=== PATIENT | female | born 1995 | race American Indian/Alaskan Native ===

== ENCOUNTER 2017-03-05 16:08 | Outpatient (CLI) | payer OTHER ==
[2017-03-05 17:09] VITALS: BP 135/86
== END 2017-03-05 17:40 | disposition home or self-care (01) ==
LOC: TRG 16:08 → LD 16:10 → TRG 17:40
PROVIDERS: ATTEND Obstetrics & Gynecology
DX: O47.03 False labor before 37 completed weeks of gestation, third trimester (principal); Z3A.31 31 weeks gestation of pregnancy

== ENCOUNTER 2017-03-27 13:50 | Outpatient (CLI) | payer OTHER ==
--- NOTE | 2017-03-28 09:16 | Ultrasound Report ---
BILATERAL DIGITAL DIAGNOSTIC MAMMOGRAM with CAD and BILATERAL BREAST ULTRASOUND: 03/27/17 CLINICAL: Left breast pain and discharge which varies from milky to bloody. Status post benign left ultrasound guided needle biopsy on 03/15/16 with pathologic diagnosis of proliferative fibrocystic changes with duct ectasia, blunt duct adenosis and sclerosis. COMPARISON:03/15/16 [facility] left mammogram. Imaging prior to that was at [facility] and those images are not available. FINDINGS: The breasts are heterogeneously dense, which may obscures small masses. An irregular partially circumscribed right central breast mass persists with spot compression. Two circumscribed masses in the left upper outer breast. The smaller mass has a biopsy clip and correlates with the most recent biopsy. The larger mass was not as dense or as large on the last mammogram. No architectural distortion or suspicious calcifications. Ultrasound of the right breast demonstrated an oval heterogeneous solid slightly irregular mass at 6 o'clock 5 cm from the nipple. It measures 1.2 x 1.1 x 0.9 cm and correlates with the mammographic mass. Ultrasound of the left breast (including all four quadrants and the retroareolar area) was performed. A solid heterogeneous hypoechoic mass at 1 o'clock 5 cm from the nipple contains a biopsy clip and correlates with the lesion that was biopsied on 03/15/16. It now measures 1.1 x 0.9 x 0.7 cm compared to 1.4 x 1.3 x 1.5 cm on the last exam. An oval solid heterogeneous hypoechoic mass at 1 o'clock 7 cm from the nipple measures 1.4 x 0.7 x 1.4 cm and it correlates with the mammographic mass which is more prominent than on the prior exam. No other mass of the left breast. Ultrasound of the left axilla demonstrated a single lymph node with central fat and benign morphology measuring 1.0 x 0.7 x 0.6 cm. IMPRESSION: 1. A solid 1.2 cm right breast mass at 6 o'clock 5 cm from the nipple. This mass is suspicious unless prior imaging can confirm stability in size over time. 2. A solid 1.4 cm left breast mass at 1 o'clock 7 cm from the nipple is suspicious because it appears larger and more prominent than on the prior mammogram. A second solid 1.1 cm mass in the left breast has been proven to be benign by needle biopsy and is smaller. 3. Recommend ultrasound guided needle biopsy of the right breast mass and ultrasound guided biopsy of the left breast mass at 1 o'clock which has not been biopsied. We will also attempt to obtain prior imaging from [facility] to better assess suspicion of these bilateral masses. BI-RADS CATEGORY: 4 -- Suspicious ACR BI-RADS MAMMOGRAPHIC CODES: 0 = Needs additional imaging evaluation; 1 = Negative; 2 = Benign; 3 = Probably benign; 4 = Suspicious; 5 = Malignant; 6 = Known biopsy-proven malignancy COMMENT: 1. Dense breast tissue, i.e., adenosis, fibrocystic changes, etc., may obscure an underlying neoplasm. 2. Approximately 10% of cancers are not detected with mammography. 3. A negative mammography report should not delay biopsy if a clinically suspicious mass is present. COMMENT: Patient follow-up letters are generated by our Alerts application.
== END 2017-03-27 13:51 | disposition home or self-care (01) ==
LOC: SPVWC 13:50
PROVIDERS: ATTEND Surgery
DX: N60.41 Mammary duct ectasia of right breast (principal); N60.42 Mammary duct ectasia of left breast; N63 Unspecified lump in breast; N64.52 Nipple discharge; N64.4 Mastodynia
CPT/HCPCS: 76642; A4648; G0204; 77066

== ENCOUNTER 2017-04-05 00:04 | Emergency (ER) | payer OTHER ==
[2017-04-05 01:47] LABS: Basophils % (Auto) 1.9 % (0.0-1.8); Eosinophils % (Auto) 1.1 % (0.0-4.3); Hematocrit 39.4 % (30.3-42.9); Hemoglobin 12.6 gm/dl (10.1-14.3); Mean Corpuscular HGB Conc 32 % (30-34); Mean Corpuscular Volume 77 fl (79-97); Platelet Count 248 K/mm3 (140-440); Red Blood Count 5.11 M/mm3 (3.65-5.03); Red Cell Distribution Width 15.7 % (13.2-15.2); White Blood Count 9.3 K/mm3 (4.5-11.0)
[2017-04-05 01:57] LABS: Mean Corpuscular Hemoglobin 25 pg (28-32)
[2017-04-05 01:58] LABS: Anion Gap 13 mmol/L; Blood Urea Nitrogen 12 mg/dL (7-17); Carbon Dioxide 27 mmol/L (22-30); Chloride 102.3 mmol/L (98-107); Glucose 102 mg/dL (65-100); Potassium 3.5 mmol/L (3.6-5.0); Sodium 139 mmol/L (137-145)
--- NOTE | 2017-04-05 03:46 | XRay Report ---
FINAL REPORT PROCEDURE: XR CHEST ROUTINE 2V TECHNIQUE: PA and lateral chest radiographs were obtained. CPT 23242 HISTORY: SOB/CP COMPARISON: No prior studies are available for comparison. FINDINGS: Heart: Normal. Mediastinum/Vessels: Normal. Lungs/Pleural space: Normal. Bony thorax: No acute osseous abnormality. Other: IMPRESSION: Normal examination.
[2017-04-05 04:55] VITALS: BP 122/91
== END 2017-04-05 01:20 | disposition left against medical advice (07) ==
LOC: ED 00:04
DX: R07.89 Other chest pain (principal); I10 Essential (primary) hypertension; Z88.8 Allergy status to other drugs, medicaments and biological substances; Z53.21 Procedure and treatment not carried out due to patient leaving prior to being seen by health care provider
CPT/HCPCS: 36415; 71020; 80048; 84484; 84703; 85025; 85379; 93005; 93010

== ENCOUNTER 2017-04-30 08:16 | Outpatient (CLI) | payer OTHER ==
--- NOTE | 2017-04-30 10:33 | Ultrasound Report ---
ULTRASOUND GUIDED NEEDLE CORE BIOPSY LEFT BREAST WITH CLIP PLACEMENT: 04/30/17 CLINICAL: Left breast mass at 1 o'clock 7 cm from the nipple. COMPARISON :03/27/17 FINDINGS: The procedure was explained to the patient and informed consent was obtained. Ultrasound demonstrated the previously described mass at 1 o'clock.. I marked the breast with a felt tip marker and a time out was called. The skin was prepped with Betadine and anesthetized with 1% lidocaine. Needle core biopsy was performed through a tiny dermatotomy using ultrasound guidance, 2% lidocaine with epinephrine for deep anesthesia and a 14-gauge Achieve biopsy device. 3 cores were obtained and placed in formalin. A clip was deployed within the mass. The patient tolerated the procedure well and there were no apparent complications. Hemostasis was achieved with minimal pressure and a sterile dressing was applied. She left the department in good condition and was given instructions for wound care and followup. IMPRESSION: Uncomplicated ultrasound guided needle core biopsy with clip placement left breast.
--- NOTE | 2017-04-30 10:47 | Ultrasound Report ---
ULTRASOUND GUIDED NEEDLE CORE BIOPSY RIGHT BREAST WITH CLIP PLACEMENT: 04/30/17 CLINICAL: Right breast mass at 6 o'clock 5 cm from the nipple. COMPARISON :03/27/17 FINDINGS: The procedure was explained to the patient and informed consent was obtained. Ultrasound demonstrated the previously described mass at 6 o'clock.. I marked the breast with a felt tip marker and a time out was called. The skin was prepped with Betadine and anesthetized with 1% lidocaine. Needle core biopsy was performed through a tiny dermatotomy using ultrasound guidance, 2% lidocaine with epinephrine for deep anesthesia and a 14-gauge Achieve biopsy device. Three cores were obtained and placed in formalin. A clip was deployed within the mass. The patient tolerated the procedure well and there were no apparent complications. Hemostasis was achieved with minimal pressure and a sterile dressing was applied. She left the department in good condition and was given instructions for wound care and followup. IMPRESSION: Uncomplicated ultrasound guided needle core biopsy with clip placement right breast.
== END 2017-04-30 08:17 | disposition home or self-care (01) ==
LOC: SPVWC 08:16
PROVIDERS: ATTEND Surgery
DX: N60.91 Unspecified benign mammary dysplasia of right breast (principal); N60.92 Unspecified benign mammary dysplasia of left breast; Z88.5 Allergy status to narcotic agent
CPT/HCPCS: 19083; 19084; 88305; A4648

== ENCOUNTER 2019-03-15 23:27 | Emergency (ER) | payer OTHER ==
[2019-03-16 00:08] LABS: Bilirubin,Urine NEG (Negative); Blood,Urine LG (Negative); Color,Urine Yellow (Yellow); Urobilinogen,Urine < 2.0 mg/dL (<2.0)
[2019-03-16 00:16] LABS: RBC,Urine > 182.0 /HPF (0.0-6.0)
[2019-03-16 00:17] LABS: Basophils % (Auto) 0.3 % (0.0-1.8); Eosinophils # (Auto) 0.1 K/mm3 (0.0-0.4); Eosinophils % (Auto) 1.7 % (0.0-4.3); Hematocrit 32.9 % (30.3-42.9); Hemoglobin 10.7 gm/dl (10.1-14.3); Lymphocytes # (Auto) 3.1 K/mm3 (1.2-5.4); Lymphocytes % (Auto) 37.8 % (13.4-35.0); Mean Corpuscular HGB Conc 33 % (30-34); Mean Corpuscular Volume 74 fl (79-97); Monocytes # (Auto) 0.6 K/mm3 (0.0-0.8); Platelet Count 294 K/mm3 (140-440); Red Blood Count 4.43 M/mm3 (3.65-5.03); Red Cell Distribution Width 17.5 % (13.2-15.2)
[2019-03-16 00:39] LABS: Alanine Aminotransferase 12 units/L (7-56); Albumin 3.9 g/dL (3.9-5); BUN/Creatinine Ratio 20; Blood Urea Nitrogen 18 mg/dL (7-17); Calcium 8.8 mg/dL (8.4-10.2); Hemolysis Index 5
--- NOTE | 2019-03-16 05:04 | Emergency Department Report ---
<RODRIGO FLOREZ - Last Filed: 03/16/19 05:05> ED Female HPI - General Chief complaint: Vaginal Bleeding Stated complaint: HEAVY BLEEDING/CLOTS/ABD PAIN Time Seen by Provider: 03/16/19 02:41 Source: patient Mode of arrival: Ambulatory Limitations: No Limitations - History of Present Illness Initial comments: 23-year-old presents [place] female to emergency Department complaining of heavy vaginal bleeding with excess plus for the past couple days. Sprain bleeding associated with some cramping, but reports no dysuria or vaginal discharge. Pain does radiate to the flank. Reports no fever, chills, sweats, chest pain, palpitations, nausea, vomiting. There is no tinnitus. There is no presyncope. She reports no trauma. She reports no no vaginal rash or irritation. And no dyspareunia. No constipation or diarrhea. States she is not on any any control but does have a strong family history is for uterin e fibroids. She denies any past medical history of any bleeding disorders and is not taking any blood thinners. This was spontaneous reports she has not had an episode like this in the amount of blood and cramping so brought to the emergency department this evening. There is no palliative or provocative factors reported. MD Complaint: vaginal bleeding Location: suprapubic Radiation: non-radiating Severity: mild Quality: dull Consistency: constant Improves with: none Are you Now?: No Associated Symptoms: vaginal bleeding. denies: vaginal discharge, abdominal pain, nausea/vomiting, dysuria, hematuria - Related Data Previous Rx's Medication Instructions Recorded Last Taken Type Ibuprofen [Motrin 600 MG tab] 600 mg PO Q8H PRN #30 tablet 01/15/16 Unknown Rx Multivitamin with Iron 1 each PO DAILY #30 tablet 01/15/16 Unknown Rx [Multivitamins with Iron] Ketorolac [Toradol] 10 mg PO Q6H PRN #20 tablet 03/16/19 Unknown Rx Nitrofurantoin [place]/M-Cryst 100 mg PO BID 7 Days #14 capsule 03/16/19 Unknown Rx [Macrobid CAP] Allergies Allergy/AdvReac Type Severity Reaction Status Date / Time tramadol Allergy Severe Itching Verified 03/05/17 16:50 ED Review of Systems Comment: All other systems reviewed and negative ED Past Medical Hx - Past Medical History Hx Hypertension: Yes (NO MEDS) Hx Diabetes: Yes (PREGNANCYonly) Hx Deep Vein Thrombosis: No Hx Renal Disease: No Hx Sickle Cell Disease: No Hx Seizures: No Hx Asthma: No Hx HIV: No - Surgical History Past Surgical History?: Yes Hx Cholecystectomy: Yes - Social History Smoking Status: Never Smoker Substance Use Type: None - Medications Home Medications: Home Medications Medication Instructions Recorded Confirmed Last Taken Type Ibuprofen [Motrin 600 MG tab] 600 mg PO Q8H PRN #30 tablet 01/15/16 Unknown Rx Multivitamin with Iron 1 each PO DAILY #30 tablet 01/15/16 Unknown Rx [Multivitamins with Iron] Ketorolac [Toradol] 10 mg PO Q6H PRN #20 tablet 03/16/19 Unknown Rx Nitrofurantoin [place]/M-Cryst 100 mg PO BID 7 Days #14 capsule 03/16/19 Unknown Rx [Macrobid CAP] ED Physical Exam - General Limitations: No Limitations General appearance: alert, in no apparent distress - Head Head exam: Present: atraumatic, normocephalic - Eye Eye exam: Present: normal appearance - ENT ENT exam: Present: mucous membranes moist - Neck Neck exam: Present: normal inspection - Respiratory Respiratory exam: Present: normal lung sounds bilaterally. Absent: respiratory distress - Cardiovascular Cardiovascular Exam: Present: regular rate, normal rhythm. Absent: systolic murmur, diastolic murmur, rubs, gallop - GI/Abdominal GI/Abdominal exam: Present: soft, normal bowel sounds - External exam: Present: normal external exam Speculum exam: Present: vaginal bleeding. Absent: foreign body, tissue, laceration Bi-manual exam: Present: uterine tenderness, other (no account support specialist was present during examination). Absent: cervical motion tendernes - Extremities Exam Extremities exam: Present: normal inspection, full ROM - Back Exam Back exam: Present: normal inspection - Neurological Exam Neurological exam: Present: alert, oriented X3 - Psychiatric Psychiatric exam: Present: normal affect, normal mood - Skin Skin exam: Present: warm, dry, intact, normal color. Absent: rash ED Medical Decision Making - Lab Data Result diagrams: 03/15/19 23:48 03/15/19 23:48 ED Disposition Clinical Impression: UTI (urinary tract infection) Qualifiers: Urinary tract infection type: acute cystitis Hematuria presence: without hematuria Qualified Code(s): N30.00 - Acute cystitis without hematuria Disposition: DC-01 TO HOME OR SELFCARE Instructions: Menstruation (ED), Menorrhagia (ED) Prescriptions: Nitrofurantoin [place]/M-Cryst [Macrobid CAP] 100 mg PO BID 7 Days #14 capsule Ketorolac [Toradol] 10 mg PO Q6H PRN #20 tablet PRN Reason: Pain Referrals: SELMA OLEA MD [Staff Physician] - 3-5 Days Forms: Work/School Release Form(ED) <IRVIN PERES - Last Filed: 03/16/19 05:36> ED Review of Systems ROS: Stated complaint: HEAVY BLEEDING/CLOTS/ABD PAIN Other details as noted in HPI ED Course Vital Signs 03/15/19 23:32 Temperature 98.5 F Pulse Rate 97 H Respiratory 18 Rate Blood Pressure 149/100 O2 Sat by Pulse 100 Oximetry ED Medical Decision Making - Lab Data Result diagrams: 03/15/19 23:48 03/15/19 23:48 Critical care attestation.: If time is entered above; I have spent that time in minutes in the direct care of this critically ill patient, excluding procedure time. ED Disposition Is pt being admited?: No Does the pt Need Aspirin: No Time of Disposition: 05:36
--- NOTE | 2019-03-16 05:13 | Ultrasound Report ---
PROCEDURE: US TRANSVAGINAL TECHNIQUE: Real-time transabdominal sonography in multiple planes of the pelvis was performed. The p elvic structures, especially the ovaries, were not optimally visualized. Transvaginal sonography was then performed to better evaluate the structures and/or abnormalities described below with image docu mentation. HISTORY: pelvic pain and vaginal bleeding COMPARISONS: None . FINDINGS: UTERUS Size: 10.8 x 5.1 x 6 cm. Endometrial thickness: 13 mm. Orientation: anteverted. Cervix: Normal. Fibroids/masses: None. RIGHT Ovary: 2.8 x 2.9 cm. Appearance: Normal. LEFT Ovary: Not visualized Pelvic fluid: None. Other: None. IMPRESSION: The uterus and right ovary: Normal appearance. The left ovary is not visualized. This document is electronically signed by Kelli De La Rosa DO., March 16 2019 05:12:06 AM ET
--- NOTE | 2019-03-16 05:14 | Ultrasound Report ---
PROCEDURE: US PELVIC COMPLETE TECHNIQUE: Real-time transabdominal and transvaginal sonography in multiple planes of the pelvis was performed. The pelvic structures, especially the ovaries, were not optimally visualized. Transvagina l sonography was then performed to better evaluate the structures and/or abnormalities described belo w with image documentation. HISTORY: pelvic pain and vaginal bleeding COMPARISONS: None . FINDINGS: UTERUS Size: 10.8 x 5.1 x 6 cm. Endometrial thickness: 13 mm. Orientation: anteverted. Cervix: Normal. Fibroids/masses: None. RIGHT Ovary: 2.8 x 2.9 cm. Appearance: Normal. LEFT Ovary: Not visualized Pelvic fluid: None. Other: None. IMPRESSION: The uterus and right ovary: Normal appearance. The left ovary is not visualized. This document is electronically signed by Kelli De La Rosa DO., March 16 2019 05:12:34 AM ET
[2019-03-16] MEDS ORDERED: XYLOCAINE 1% MPF 5 mL INFILTRATI ONE (05:34)
[2019-03-16] MEDS ORDERED: TORADOL IV ONE (05:34)
[2019-03-16] MEDS ORDERED: ROCEPHIN IM ONE (05:34)
[2019-03-16] MEDS ORDERED: ZOFRAN IV ONE (05:34)
[2019-03-16] MEDS ORDERED: ZOFRAN ODT PO ONE (05:43)
[2019-03-16] MEDS ORDERED: TORADOL IM ONE (05:43)
[2019-03-16] MEDS ORDERED: TYLENOL #3 PO ONE (06:04)
[2019-03-16 07:06] VITALS: BP 139/91
== END 2019-03-16 07:06 | disposition home or self-care (01) ==
LOC: ED 23:27
DX: N39.0 Urinary tract infection, site not specified (principal); I10 Essential (primary) hypertension; Z90.49 Acquired absence of other specified parts of digestive tract; Z88.6 Allergy status to analgesic agent
CPT/HCPCS: 36415; 76830; 76856; 80053; 81001; 84703; 85025; 96372; 99284; J0696; J1885; Q0162

== ENCOUNTER 2022-04-11 19:27 | Inpatient (IN) | payer OTHER ==
[2022-04-11] MEDS ORDERED: BUTORPHANOL 2 MG/1 ML INJ IV PRN (21:40)
[2022-04-11] MEDS ORDERED: ACETAMINOPHEN 325 MG TAB PO PRN (21:40)
[2022-04-11] MEDS ORDERED: LACTATED RINGERS 1,000 ML IV SCH (21:45)
[2022-04-11] MEDS ORDERED: INDOMETHACIN 25 MG CAP PO ONE (21:58)
[2022-04-11] MEDS ORDERED: MAGNESIUM SULFATE 40GM/1000ML 40 GM/1,000 ML BAG IV SCH (22:00)
[2022-04-11] MEDS ORDERED: DOCUSATE SODIUM 100 MG CAP PO SCH (22:00)
[2022-04-11] MEDS ORDERED: BETAMET ACET/BETAMET NA PH 6 MG/ML INJ 5 ML MDV IM SCH (22:00)
[2022-04-11] MEDS ORDERED: AMPICILLIN/NS 2 GM/100 ML 2 GM/100 ML BAG IV SCH (22:00)
--- NOTE | 2022-04-11 22:02 | History and Physical Report ---
History of Present Illness Date of examination: 04/11/22 Date of admission: 04/11/2022 Chief complaint: Leaking of fluid History of present illness: 26-year-old at 27-3/7 weeks with a twin gestation reports sudden onset leaking of fluid. There is no vaginal bleeding. There is good movement x2. There are irregular contractions that started after the leakage of fluid. She has a cerclage in place. In OB triage, ROM plus was (+). As such, this patient fulfilled the contemporary criteria for premature rupture of membranes. She sees a maternal- medicine specialist at [facility]. Her primary MEMBERSHIP ADVISOR is part of the [facility]. Her health benefit provider is [facility]. She is admitted to labor and delivery for stabilization and subsequent transfer to a [facility] facility. Past History Past Medical History: no pertinent history Past Surgical History: no surgical history Family/Genetic History: none Social history: no significant social history - Obstetrical History Expected Date of Delivery: 07/08/22 Actual Gestation: 27 Week(s) 4 Day(s) : 2 Para: 1 Hx # Term Pregnancies: 0 Medications and Allergies Allergies Allergy/AdvReac Type Severity Reaction Status Date / Time tramadol Allergy Severe Itching Verified 04/11/22 20:35 Home Medications Medication Instructions Recorded Confirmed Last Taken Type Ibuprofen [Motrin 600 MG tab] 600 mg PO Q8H PRN #30 tablet 01/15/16 Unknown Rx Multivitamin with Iron 1 each PO DAILY #30 tablet 01/15/16 Unknown Rx [Multivitamins with Iron] Acetaminophen/Codeine [Tylenol 1 tab PO Q6H PRN #12 tab 03/16/19 Unknown Rx /Codeine # 3 tab] Acetaminophen/Codeine [Tylenol 1 tab PO Q6H PRN #12 tab 03/16/19 Unknown Rx /Codeine # 3 tab] Nitrofurantoin [place]/M-Cryst 100 mg PO BID 7 Days #14 capsule 03/16/19 Unknown Rx [Macrobid CAP] Active Meds: Active Medications Acetaminophen (Acetaminophen 325 Mg Tab) 650 mg PO Q4H PRN PRN Reason: Pain, Mild (1-3) Amoxicillin (Amoxicillin 500 Mg Cap) 500 mg PO Q8HR BROWN; Protocol Stop: 04/18/22 21:59 Azithromycin (Azithromycin 1 Gm Oral Pwdr Packet) 1 gm PO ONCE ONE; Protocol Stop: 04/11/22 22:16 Betamethasone Acet/Betameth SodPhos (Betamet Acet/Betamet Na Ph 6 Mg/Ml Inj 5 Ml Mdv) 12 mg IM Q24HR BROWN Stop: 04/12/22 10:01 Butorphanol Tartrate (Butorphanol 2 Mg/1 Ml Inj) 1 mg IV Q2H PRN PRN Reason: Pain, Moderate(4-6) LABOR PAIN Docusate Sodium (Docusate Sodium 100 Mg Cap) 100 mg PO BID BROWN Lactated Ringer's (Lactated Ringers) 1,000 mls @ 125 mls/hr IV DIRECT BROWN Magnesium Sulfate (Magnesium Sulfate 40gm/1000ml) 40 gm in 1,000 mls @ 25 mls/hr IV DIRECT BROWN Stop: 04/12/22 21:59 Magnesium Sulfate (Magnesium Sulfate 4gm/100ml) 4 gm in 100 mls @ 300 mls/hr IV ONCE ONE Stop: 04/11/22 22:34 Ampicillin Sodium (Ampicillin/Ns 2 Gm/100 Ml) 2 gm in 100 mls @ 100 mls/hr IV Q6H BROWN; Protocol Stop: 04/13/22 21:59 Indomethacin (Indomethacin 25 Mg Cap) 50 mg PO ONCE STA Stop: 04/11/22 21:59 Indomethacin (Indomethacin 25 Mg Cap) 25 mg PO Q6HR BROWN Stop: 04/14/22 00:00 Multivitamins/Iron/Calcium ( Eos92-Ts Fumarate-Folic Acid Vit Tab) 1 each PO ONCE ONE Stop: 04/11/22 22:16 Review of Systems All systems: negative - Vital Signs Vital signs: Vital Signs Pulse Pulse Ox 101 H 98 04/11/22 20:08 04/11/22 20:08 Temp Pulse Resp BP Pulse Ox 98 H 18 126/61 99 04/11/22 21:58 04/11/22 20:12 04/11/22 20:12 04/11/22 21:58 - Physical Exam Breasts: Positive: normal Cardiovascular: Regular rate Lungs: Positive: Normal air movement Abdomen: Positive: normal appearance Genitourinary (Female): Positive: normal external genitalia, normal perenium Vulva: both: normal Vagina: Positive: normal moisture Cervix: Positive: other (Cerclage in place) Uterus: Positive: enlarged Adnexa: both: normal Anus/Rectum: Positive: normal perianal skin Extremities: Positive: normal Deep Tendon Reflex Grade: Normal +2 - Obstetrical FHR: category 1 Uterine Contraction Monitor Mode: External Cervical Dilatation: 0 Results Result Diagrams: 04/11/22 22:40 ROM plus is positive. Gonorrhea/chlamydia DNA probe was ordered. GBS culture was ordered. Urine culture was ordered. SARS-CoV-2 PCR was ordered. Ultrasound: report reviewed, image reviewed Assessment and Plan - Patient Problems (1) 27 weeks gestation of Current Visit: Yes Status: Acute Plan to address problem: care is up-to-date at [facility]. Rectovaginal GBS culture was ordered. (2) premature rupture of membranes (PPROM) with unknown onset of labor Current Visit: Yes Status: Acute Plan to address problem: This patient reported sudden onset leaking of fluid. There were no contractions that preceded the leaking of fluid. However, contractions followed after leaking fluid. In OB triage, ROM plus is positive. As such, this patient fulfilled the contemporary criteria for premature rupture membranes. The etiology for this is unknown at this time. Gonorrhea/chlamydia DNA probes, urine culture, and GBS culture ordered. Betamethasone x2 was ordered. Magnesium 4 g load/1 g an hour was ordered for neuro protection. Indocin prescribed for inhibition of acute labor. Ampicillin IV 2 g every 6 hours x48 hours (followed by amoxicillin 500 mg p.o. every 8 hours x5 days) and azithromycin p.o. x1 were prescribed to prolong the latency. Admit to labor and delivery for stabilization. Thereafter transfer to [facility] antepartum/HRP unit. The accepting doctor is Dr. Zina Inman. [facility] not accepting patient transfers in secondary to critical staffing shortage. (3) , twins Current Visit: Yes Status: Acute Plan to address problem: Diamniotic/dichorionic. (4) Cervical insufficiency during in third trimester, antepartum Current Visit: Yes Status: Acute Plan to address problem: Cerclage placed by maternal- medicine specialist at [facility]. Consider removal of cerclage at 32 weeks as this may be a nidus for infection.
[2022-04-11 22:05] LABS: Bilirubin,Urine Negative (Negative); Color,Urine Yellow (Yellow)
[2022-04-11 22:06] LABS: Blood,Urine Small (Negative); Protein,Urine <15 mg/dL mg/dL (Negative)
[2022-04-11] MEDS ORDERED: PRENATAL VIT27-FE FUMARATE-FOLIC ACID VIT TAB PO ONE (22:15)
[2022-04-11] MEDS ORDERED: AZITHROMYCIN 1 GM ORAL PWDR PACKET PO ONE (22:15)
[2022-04-11] MEDS ORDERED: MAGNESIUM SULFATE 4 GM/100 ML BAG IV ONE (22:15)
[2022-04-11 23:01] LABS: Hematocrit 34.2 % (30.3-42.9); Hemoglobin 11.2 gm/dl (10.1-14.3); Mean Corpuscular HGB Conc 33 % (30-34); Mean Corpuscular Volume 82 fl (79-97); Red Blood Count 4.18 M/mm3 (3.65-5.03)
[2022-04-11 23:17] LABS: Platelet Count 220 K/mm3 (140-440)
--- NOTE | 2022-04-11 23:33 | Ultrasound Report ---
US OB followup ea add gestat, US OB transvaginal, US OB follow up INDICATION / CLINICAL INFORMATION: Twin, leaking fluid history of prior cervical cerclage. COMPARISON: None available. TECHNIQUE: Using a transcutaneous probe, multiple grayscale, color Doppler, and spectral Doppler imag es of the uterus and fetus were captured and stored. FINDINGS: Twin gestation is demonstrated. TWIN A: Twin A lies in breech position heart rate 155 bpm. The largest pocket of amniotic fluid is 2.2 cm. Grade 1 placenta right lateral/fundal position. Biparietal Diameter = 6.07 cm = 24, 5 weeks, days Head Circumference = 23.35 cm = 25, 3 weeks, days Abdominal Circumference = 25.5 to cm = 29, 5 weeks, days Femur Length = 27.6 cm = 27, 6 weeks, days Average Ultrasound Age (AUA) = 27, 0 weeks, days. EDC 07/11/2022. Clinical history gestational age based on LMP is 27 weeks 3 days. Estimated weight = 1201 g, growth percentile 72%.. TWIN B: Twin B lies in cephalic position. Heart rate 143 bpm. Largest pocket of amniotic fluid is 3.4 cm. Grade 1 anterior placenta. Biparietal Diameter = 5.76 cm = 23, 4 weeks, days Head Circumference = 23.23 cm = 25, 2 weeks, days Abdominal Circumference = 21.73 cm = 26, 1 weeks, days Femur Length = 4.77 cm = 26, 0 weeks, days Average Ultrasound Age (AUA) = 25, 2 weeks, days. EDC 07/23/2022 Clinical history gestational age 27 weeks 3 days. Estimated weight = 863 g, growth percentile 4%. The maternal cervix measures 0 cm. Cervix appears open beyond the cerclage stitches with fluid presen t within the upper vaginal vault. Adnexa are not well visualized secondary to bowel gas. IMPRESSION: 1. Living twin gestation with mild disparity of renal size as detailed above. 2. No measurable cervix is demonstrated. Fluid present within the upper vaginal vault. 3. Oligohydramnios, premature rupture of membranes is not excluded. Signer Name: Sung Casillas II, MD Signed: 04/11/2022 11:29 PM Workstation Name: [id number]
[2022-04-12] MEDS ORDERED: INDOMETHACIN 25 MG CAP PO SCH
[2022-04-12 03:56] VITALS: BP 124/77
[2022-04-13] MEDS ORDERED: AMOXICILLIN 500 MG CAP PO SCH (22:00)
== END 2022-04-12 04:05 | disposition home or self-care (01) | DRG 831 ==
LOC: TRG 19:27 → APU 19:31 → TRG 21:40 → LD 21:40
PROVIDERS: ADMIT Obstetrics & Gynecology; ATTEND Obstetrics & Gynecology
DX: O60.02 Preterm labor without delivery, second trimester (principal); O34.32 Maternal care for cervical incompetence, second trimester; O30.002 Twin pregnancy, unspecified number of placenta and unspecified number of amniotic sacs, second trimester; Z3A.27 27 weeks gestation of pregnancy
CPT/HCPCS: 36415; 76816; 76817; 81001; 84112; 85027; 86850; 86900; 86901; 87086; G0378; J0290; J0702; J3475; J7120